=== PATIENT | male | born 1990 | race Hispanic/Latino ===

== ENCOUNTER 2020-10-01 22:10 | Emergency (ER) | payer OTHER ==
[2020-10-02 11:52] LABS: SARS-CoV-2 PCR by NAA DETECTED (NotDetected)
== END 2020-10-01 23:19 | disposition home or self-care (01) ==
LOC: ERS 22:10
DX: U07.1 COVID-19 (principal)
CPT/HCPCS: 99283; U0003; U0005

== ENCOUNTER 2023-01-10 11:42 | Emergency (ER) | payer OTHER ==
[2023-01-10 12:13] LABS: #Monocytes 0.9 thou/uL (0.11-0.59); #Neutrophils 9.1 thou/uL (1.40-6.50); %Basophils 0.3 % (0.0-1.0); %Lymphocytes 4.7 % (21.0-51.0); %Monocytes 8.5 % (0.0-10.0); %Neutrophils 86.2 % (42.0-75.0); Hematocrit 50.8 % (42.0-52.0); Mean Corpuscular HGB CONC 33.5 g/dL (32.0-36.0); Mean Corpuscular Hemoglobin 32.1 pg (27.0-31.0); Mean Corpuscular Volume 95.8 fl (78.0-98.0); Mean Platelet Volume 10.6 fL (7.4-10.4); Platelet Count 198 10x3/uL (130-400); RBC Distribution Width 12.7 % (11.5-14.5); White Blood Cell (WBC) Count 10.6 10x3/uL (4.8-10.8)
[2023-01-10 12:39] LABS: Troponin I Less than 0.010 ng/mL (< 0.028)
[2023-01-10 12:44] LABS: ALT (SGPT) 38 U/L (8-55); AST (SGOT) 31 U/L (5-34); Albumin 4.5 g/dL (3.5-5.0); Alkaline Phosphatase 93 U/L (40-110); Anion Gap 15 mmol/L (10-20); BUN (Urea Nitrogen) 9 mg/dL (8.9-20.6); Bilirubin, Total 0.7 mg/dL (0.2-1.2); Calc. Creatinine Clearance 0 mL/min (70-130); Calcium 9.4 mg/dL (7.8-10.44); Carbon Dioxide 25 mmol/L (22-29); Chloride 100 mmol/L (98-107); Estimated GFR 98; Globulin 3.8 g/dL (2.4-3.5); Potassium 4.1 mmol/L (3.5-5.1); Protein, Total 8.3 g/dL (6.0-8.3); Sodium 136 mmol/L (136-145)
[2023-01-10 13:06] LABS: Glucose 115 mg/dL (70-105)
[2023-01-10 13:55] LABS: SARS-CoV-2 NAA Rapid Test Not Detected (NotDetected)
[2023-01-10] MEDS ORDERED: Ibuprofen 200 MG TAB ONE (14:14)
[2023-01-10] MEDS ORDERED: Acetaminophen 325 MG TAB ONE (14:14)
[2023-01-10 14:38] LABS: Bacteria/HPF None Seen HPF (None Seen); Bilirubin Negative (Negative); Blood, Urine Trace (Negative); CAUTI Indications for Culture Pelvic or flank pain; Clarity Clear (Clear); Glucose, Urine (Dipstick) Normal (Negative); Ketone, Urine 40 mg/dL (Negative); Leukocyte Negative Leu/uL (Negative); Nitrite Negative (Negative); Protein, Urine (Dipstick) 30 mg/dL (Neg-Trace); Specific Gravity, Urine 1.032 (1.002-1.036); Squamous Epithelial 0-3 HPF (0-3); WBC/HPF 0-3 HPF (0-3)
[2023-01-10 14:44] LABS: Urine Culture Reflex No No
== END 2023-01-10 14:30 | disposition home or self-care (01) ==
LOC: ERS 11:42
DX: J10.1 Influenza due to other identified influenza virus with other respiratory manifestations (principal); Z20.822 Contact with and (suspected) exposure to COVID-19
CPT/HCPCS: 36415; 71045; 80053; 81001; 84484; 85025; 93005

== ENCOUNTER 2024-02-06 11:55 | Emergency (ER) | payer OTHER ==
[2024-02-06] MEDS ORDERED: Acetaminophen 500 MG TAB ONE (13:09)
== END 2024-02-06 13:18 | disposition home or self-care (01) ==
LOC: ERS 11:55
DX: R51.9 Headache, unspecified (principal); R11.0 Nausea
CPT/HCPCS: 93005; 99283